=== PATIENT | male | born 1955 | race Caucasian/White ===

== ENCOUNTER 2017-09-16 14:07 | Emergency (ER) | payer OTHER ==
[~2017-09-16] VITALS: Ht 172.7 cm; Wt 65.8 kg
[~2017-09-16 14:07] MED LIST: ACET-787 PO; AMLO5TAB PO; CARI350T PO; IBUP-2213 PO; LORA-476 PO
--- NOTE | 2017-09-16 14:12 | NUR ---
PT DENIES N/V/D; SKIN IS INTACT, PINK/WARM/DRY; AAOX4, PERRL, WC BOUND D/T CHONIC LOWER EXTREM WEAKNESS; LUNGS CLEAR BL, BREATHING UNLABORED; HR EVEN AND REGULAR, BL PERIPHERAL PULSES PRESENT; BS ACTIVE X4, NO TENDERNESS TO PALPATION, NO HEPATOSPLENOMEGALLY PALPATED, RESONANT TO PERCUSSION; PT DENIES ANY FEVER, CP, SOB, OR COUGH AT THIS TIME; PT STATES 8/10 PAIN AT THIS TIME IN LOWER BACK; VSS; PATIENT POSITIONED FOR COMFORT; HOB ELEVATED; BEDRAILS UP X2; BED DOWN.
--- NOTE | 2017-09-16 14:12 | NUR ---
PT BIBA BLS TO BED 8
[2017-09-16 14:15] VITALS: BP 133/77
[2017-09-16] MEDS ORDERED: KETOROLAC 60 MG/2 ML VIAL IM ONE (14:20)
[2017-09-16 15:03] VITALS: BP 128/94
--- NOTE | 2017-09-16 15:08 | NUR ---
Patient discharged with v/s stable. Written and verbal after care instructions given and explained. Patient alert, oriented and verbalized understanding of instructions. MOVES BY WC. All questions addressed prior to discharge. ID band removed. Patient advised to follow up with PMD. Rx of TRAMADOL given. Patient educated on indication of medication including possible reaction and side effects. Opportunity to ask questions provided and answered.
== END 2017-09-16 15:08 | disposition home or self-care (01) ==
LOC: MED 14:07
DX: M54.5 Low back pain (principal); G89.29 Other chronic pain; F10.229 Alcohol dependence with intoxication, unspecified; K21.9 Gastro-esophageal reflux disease without esophagitis; I10 Essential (primary) hypertension; Z95.0 Presence of cardiac pacemaker; Z79.899 Other long term (current) drug therapy
CPT/HCPCS: 96372; 99283; J1885

== ENCOUNTER 2017-09-16 15:54 | Emergency (ER) | payer OTHER ==
[~2017-09-16] VITALS: Ht 175.3 cm; Wt 93.0 kg
[2017-09-16 16:03] VITALS: BP 130/52
--- NOTE | 2017-09-16 16:14 | NUR ---
PT LWBS AT THIS TIME
--- NOTE | 2017-09-16 16:48 | NUR ---
PATIENT WAS TRIAGED TO [facility] AND WANTED TO BE SEEN FOR MORE PAIN MEDS. AFTER SPEAKING TO HIM HE DECIDED TO LEAVE AND WAS PROVIDED WITH A BUS PASS. HE LEFT THE ER BY HIMSELF VIA WHEELCHAIR
== END 2017-09-16 16:14 | disposition left against medical advice (07) ==
LOC: MED 15:54
DX: M54.9 Dorsalgia, unspecified (principal); M25.561 Pain in right knee; M25.562 Pain in left knee; Z53.21 Procedure and treatment not carried out due to patient leaving prior to being seen by health care provider
CPT/HCPCS: 99283

== ENCOUNTER 2017-12-11 17:00 | Inpatient (IN) | payer OTHER ==
[~2017-12-11] VITALS: Ht 170.2 cm; Wt 72.1 kg
--- NOTE | 2017-12-11 17:04 | NUR ---
PATIENT BIBA TO BED2 AT THIS TIME.
[2017-12-11] MEDS ORDERED: NACL 0.9% 1,000 ML IV ONE (17:05)
[2017-12-11 17:06] VITALS: BP 122/85
[2017-12-11] MEDS ORDERED: KETOROLAC 30 MG/ML VIAL IVP ONE (17:20)
--- NOTE | 2017-12-11 17:20 | NUR ---
62YO M BIB A FOR LBP. PT STAT HAVING LBPX2 DAYS DU TO RUNNING OUT OF MEDS, TARDIVE DYSKINESIA NOTED, LS CLEAR , ABB SOFT NON TENDER, -N/V/D. PT STATES HE DOES NOT WALK, ER MD MADE AWARE ER MD MADE AWARE. WILL CONTINUE TO MONITOR
[2017-12-11 17:37] LABS: BASOPHILS % (AUTO) 0.5 % (0.0-2.0); EOSINOPHILS % (AUTO) 0.4 % (0.0-4.0); HEMATOCRIT 42.1 % (36-52); HEMOGLOBIN 13.9 g/dL (12.0-18.0); LYMPHOCYTES # (AUTO) 2.1 K/uL (2.0-11.5); MEAN CORPUSCULAR HEMOGLOBIN 30 pg (27-31); MEAN CORPUSCULAR HGB CONC 33 g/dL (33-37); MEAN CORPUSCULAR VOLUME 91.6 fL (80-94); MONOCYTES # (AUTO) 0.6 K/uL (0.8-1.0); MONOCYTES % (AUTO) 8.7 % (1.7-9.3); NEUTROPHILS # (AUTO) 3.8 K/uL (1.8-7.7); NEUTROPHILS % (AUTO) 58.4 % (42.2-75.2); PLATELET COUNT (AUTO) 235 K/uL (140-450); RED CELL DISTRIBUTION WIDTH 14.6 % (11.6-13.7); WHITE BLOOD COUNT (AUTO) 6.5 K/uL (4.8-10.8)
[2017-12-11 17:58] LABS: ALBUMIN 3.5 g/dL (3.4-5.0); ANION GAP 8.2 (8-16); ASPARTATE AMINOTRANSFERASE 18 U/L (15-37); CARBON DIOXIDE 30.7 mmol/L (21-32); CHLORIDE 98 mmol/L (98-107); CREATININE 0.6 mg/dL (0.7-1.3); GFR ARICAN-AMERICAN 176 mL/min (>90); GLUCOSE 98 mg/dL (74-106); SODIUM SERUM 134 mmol/L (136-145); TOTAL BILIRUBIN 0.5 mg/dL (0.0-1.0); UREA NITROGEN, BLOOD 11 mg/dL (7-18)
[2017-12-11 18:03] LABS: POTASSIUM 2.9 mmol/L (3.5-5.1)
[2017-12-11] MEDS ORDERED: POTASSIUM CHLORIDE 10 MEQ TABER PO ONE (18:05)
[2017-12-11 18:24] LABS: BARBITURATE, URINE NEG. ng/ml (NEG <=200); BENZODIAZEPINE, URINE NEG. ng/mL (NEG <=200); CANNABINOID, URINE NEG. ng/mL (NEG <=50); COCAINE, URINE NEG. ng/mL (NEG <=300); OPIATE, URINE POS. ng/mL (NEG <=2000); PHENCYCLIDINE SCREEN,URINE NEG. ng/mL (NEG <=25)
[2017-12-11] MEDS ORDERED: fentaNYL 0.05 MG/ML VIAL IVP ONE (18:50)
[2017-12-11] MEDS ORDERED: ONDANSETRON 4 MG/2 ML VIAL IVP PRN (18:55)
--- NOTE | 2017-12-11 19:00 | NUR ---
NURSE CALL MD FOR ORDERS WHEN PATIENT ARRIVES ON FLOOR. DR CARIAS.
[2017-12-11] MEDS ORDERED: DOCUSATE 100 MG/10 ML UDC PO PRN (19:05)
--- NOTE | 2017-12-11 19:25 | NUR ---
ADMITTED A 62 Y/O MALE FROM VIA [facility] WITH CHIEF COMPLAINT OF LOW BACK PAIN. TRANSFERRED PATIENT FROM [facility] TO BED WITH 4 PERSON ASSIST. PATIENT AA0X3, UNABLE TO AMBULATE, MRSA NASAL SWAB DONE. SKIN INTACT. EXPLAINED PLAN OF CARE. PERSONAL BELONGING AT PATIENT BEDSIDE. ROUTINE ADMISSION CARE DONE AND CARRY OUT ORDERS. FALL PRECAUTION APPLIED. CALL LIGHTS WITHIN REACH. WILL CONTINUE TO MONITOR.
--- NOTE | 2017-12-11 19:25 | NUR ---
Patient will be admitted to care of DR LEDESMA. Admited toMED-SURG. Will go to [id number]. Belongings list completed. Report to JUAN METCALF.
[2017-12-11] MEDS: LACTATED RINGERS 1,000 ML IV SCH (20:18)
[2017-12-11] MEDS: HYDROcodone/APAP 5/325 MG 1 TAB TAB PO PRN (20:24)
[2017-12-11] MEDS: HYDROmorphone 1 MG/ML AMP IVP PRN (22:45)
[2017-12-12] VITALS: BP 119/84
--- NOTE | 2017-12-12 | NUR ---
V/S TAKEN AND RECORDED. PAIN MEDICATION GIVEN FOR LOW BACK PAIN. NO S/S OF DISTRESS NOTED. WILL CONTINUE TO MONITOR.
[2017-12-12] MEDS: HYDROcodone/APAP 5/325 MG 1 TAB TAB PO PRN ×5 (02:47→20:12)
--- NOTE | 2017-12-12 02:47 | NUR ---
PATIENT ASKING FOR PAIN NORCO GIVEN. NO S/S OF DISTRESS NOTED. CALL LIGHT WITHIN REACH. WILL CONTINUE TO MONITOR.
--- NOTE | 2017-12-12 04:40 | NUR ---
AM CARE DONE. REPOSITIONED PATIENT AND PLACE IN COMFORTABLE POSITION. PATIENT STILL COMPLAINING PAIN. MEDICATION GIVEN. WILL CONTINUE TO MONITOR.
[2017-12-12] MEDS: HYDROmorphone 1 MG/ML AMP IVP PRN ×3 (05:10→13:07)
[2017-12-12 07:19] LABS: BASOPHILS % (AUTO) 0.5 % (0.0-2.0); EOSINOPHILS % (AUTO) 0.5 % (0.0-4.0); HEMATOCRIT 38.2 % (36-52); HEMOGLOBIN 12.8 g/dL (12.0-18.0); LYMPHOCYTES # (AUTO) 1.8 K/uL (2.0-11.5); LYMPHOCYTES % (AUTO) 27.2 % (20.5-51.1); MEAN CORPUSCULAR HEMOGLOBIN 31 pg (27-31); MEAN CORPUSCULAR HGB CONC 33 g/dL (33-37); MONOCYTES # (AUTO) 0.5 K/uL (0.8-1.0); MONOCYTES % (AUTO) 7.8 % (1.7-9.3); NEUTROPHILS # (AUTO) 4.2 K/uL (1.8-7.7); PLATELET COUNT (AUTO) 197 K/uL (140-450); RED BLOOD CELL COUNT(AUTO) 4.16 MIL/uL (4.20-6.10); RED CELL DISTRIBUTION WIDTH 15.3 % (11.6-13.7); WHITE BLOOD COUNT (AUTO) 6.5 K/uL (4.8-10.8)
--- NOTE | 2017-12-12 07:31 | NUR ---
GAVE REPORT TO AM SHIFT RN AT BEDSIDE FOR CONTINUITY OF CARE. PATIENT IN STABLE CONDITION.
[2017-12-12 07:32] LABS: ANION GAP 8.9 (8-16); CARBON DIOXIDE 27.3 mmol/L (21-32); CREATININE 0.5 mg/dL (0.7-1.3); POTASSIUM 3.2 mmol/L (3.5-5.1)
--- NOTE | 2017-12-12 07:32 | NUR ---
RECEIVED BEDSIDE REPORT FROM DIRECTOR OF ORTHOPEDICS NURSE. PATIENT IS AWAKE, ALERT AND ORIENTEDX4. NO SIGNS OF DISTRESS ON RA. FALL RISK PROTOCOL IN PLACE. PATIENT HAS CHRONIC BACK PAIN. PATIENT IS CHAIRFAST. SKIN IS INTACT. IV ON L FA 20G INFUSING LR AT 50. CLEAN, DRY AND INTACT. BED IN LOW POSITION. CALL LIGHT WITHIN REACH. WILL CONTINUE TO MONITOR THE PATIENT.
[2017-12-12 08:00] VITALS: BP 124/78
--- NOTE | 2017-12-12 09:05 | NUR ---
ADMINISTERED MEDS AND PRN PAIN MED. PATIENT TOLERATED WELL. BED IN LOW POSITION. WILL CONTINUE TO MONITOR
--- NOTE | 2017-12-12 10:00 | NUR ---
PATIENT REFUSING IVF.
--- NOTE | 2017-12-12 11:00 | NUR ---
PATIENT SITTING IN BED. NO SIGNS OF DISTRESS. WILL CONTINUE TO MONITOR THE PATIENT. BED IN LOW POSITION. CALL LIGHT WITHIN REACH.
--- NOTE | 2017-12-12 12:00 | NUR ---
ADMINISTERED PRN PAIN MED. PATIENT TOLERATED WELL. WILL CONTINUE TO MONITOR THE PATIENT.
--- NOTE | 2017-12-12 13:58 | NUR ---
ASSISTED PATIENT TO AMBULATE IN THE HALLWAY USING WALKER AND TOLERATED WELL. PUT PATIENT IN THE CHAIR, AND ADVISE TO USE THE CALL LIGHT IF HE WANTS TO GO BACK TO BED. WILL CONTINUE TO MONITOR.
--- NOTE | 2017-12-12 14:00 | NUR ---
PATIENT AMBULATED WITH CHARGE NURSE AROUND THE HALLS
[2017-12-12] MEDS ORDERED: TRAM50TA1 PO (15:32)
[2017-12-12] MEDS ORDERED: POTASSIUM CHLORIDE 10 MEQ TABER PO SCH (15:44)
[2017-12-12 16:00] VITALS: BP 127/80
--- NOTE | 2017-12-12 16:00 | NUR ---
PER DR EISENBERG NO IV PAIN MEDS.
--- NOTE | 2017-12-12 16:01 | NUR ---
ADMINISTERED PRN PAIN MEDS. PATIENT TOLERATED WELL. BED IN LOW POSITION. CALL LIGHT WITHIN REACH
[2017-12-12] MEDS: LACTATED RINGERS 1,000 ML IV SCH (16:15)
--- NOTE | 2017-12-12 16:30 | NUR ---
EDUCATED PATIENT TO STOP WALKING WITHOUT ASSISTANCE ADELITA WHEN TAKING PAIN MEDS. PATIENT STILL CONTINUES TO AMBULATE WITH ASSISTANCE AROUND THE HALLS
--- NOTE | 2017-12-12 18:00 | NUR ---
PATIENT IS FOR DC TODAY, WE TRIED TO CALL FAMILY FOR CHANNEL EXECUTIVE, I SPOKE TO THE SISTER MAREK AND SHE SAID THAT HIS NOT GOING TO HER PLACE UPON DC. WE CALLED THE FRIEND AND PROVIDED THE NUMBER OF HIS PLACE. HE LIVES IN [facility], WE CALLED [facility] AND THEY SAID THAT PATIENT CAN NO LONGER GO BACK THERE SINCE HE LEFT [place]. NURSE GRICELDA WILL PAGED DR. EISENBERG FOR FURTHER ORDER.
--- NOTE | 2017-12-12 18:05 | NUR ---
DR FOWLER ELECTROSTATIC PAINTER SAID THAT PATIENT CAN STAY ANOTHER NIGHT. PLACED AN ORDER FOR NEUROLOGICAL PHYSIOTHERAPIST AND LEFT A MESSAGE TO CM TO WORK ON PLACEMENT TOMORROW.
--- NOTE | 2017-12-12 19:07 | NUR ---
GAVE BEDSIDE REPORT TO DISASTER RECOVERY SPECIALIST NURSE. PATIENT ENDORSED IN STABLE CONDITION
--- NOTE | 2017-12-12 19:10 | NUR ---
RECEIVED PATIENT SITTING ON THE BEDSIDE CHAIR. EXPLAINED TO PATIENT ABOUT SAFETY AND ASK FOR HELP IF HE NEED ASSISTANCE. PATIENT VERBALIZED UNDERSTANDING. CALL LIGHT WITHIN REACH. WILL CONTINUE TO MONITOR.
--- NOTE | 2017-12-12 21:00 | NUR ---
V/S TAKEN AND RECORDED. PATIENT ALWAYS ASKING FOR PAIN MEDICATION EVEN ITS NOT DUE . EXPLAINED TO PATIENT AND EDUCATE ABOUT PAIN REGIMEN. NO S/S OF DISTRESS NOTED. WILL CONTINUE TO MONITOR.
[2017-12-13] VITALS: BP 130/81
--- NOTE | 2017-12-13 | NUR ---
SEEN PATIENT AWAKE ON BED WATCHING TV. PATIENT ASKED FOR PAIN MEDICATION. BED LINEN CHANGED. EXPLAINED/ EDUCATE PATIENT ABOUT PAIN MANAGEMENT. EMPHASIZED TO PATIENT TO CALL FOR ASSISTANCE IF NEEDED. PATIENT VERBALIZED UNDERSTANDING. FALL PRECAUTION APPLIED. CALL LIGHT WITHIN REACH.
[2017-12-13] MEDS: HYDROcodone/APAP 5/325 MG 1 TAB TAB PO PRN ×6 (00:12→19:04)
--- NOTE | 2017-12-13 02:00 | NUR ---
CHECKED PATIENT ASLEEP. NO S/S OF DISTRESS NOTED. CALL LIGHT WITHIN REACH. WILL CONTINUE TO MONITOR.
[2017-12-13] MEDS ORDERED: ACETAMINOPHEN 325 MG TAB PO PRN (06:25)
--- NOTE | 2017-12-13 07:25 | NUR ---
GAVE REPORT TO AM SHIFT RN AT BEDSIDE FOR CONTINUITY OF CARE. PATIENT IN STABLE CONDITION.
--- NOTE | 2017-12-13 07:25 | NUR ---
RECEIVED PT FROM RIGHT OF WAY CLEARER NURSE AT BEDSIDE. PT IS AAOX4. NO S/S OF DISTRESS ON RM AIR. FALL RISK PROTOCOL IN PLACE. PATIENT HAS CHRONIC BACK PAIN. PT IS CHAIRFAST. SKIN IS INTACT. IV ON L FA 20G SL, CLEAN, DRY AND INTACT, PT REFUSED IVF. BED IN LOWEST POSITION. CALL LIGHT WITHIN REACH. WILL CONTINUE TO MONITOR.
[2017-12-13 08:00] VITALS: BP_SYST 117; BP_SYST 136; BP_DIAS 66; BP_DIAS 76
--- NOTE | 2017-12-13 09:00 | NUR ---
PLACED PT ON WHEELCHAIR, WHEELED PT AROUND THE UNIT FOR RELAXATION.
--- NOTE | 2017-12-13 09:02 | NUR ---
PATIENT HAS BEEN SCREENED AND CATEGORIZED MODERATE NUTRITION RISK. PATIENT WILL BE SEEN WITHIN 3-5 DAYS OF ADMISSION. 12/14/17 12/16/[address]
--- NOTE | 2017-12-13 09:15 | NUR ---
PT'S STATED HE WANTS TO LIVE WITH HIS SISTER. CALLED PT'S SISTER DARIELA, LEFT A MESSAGE REQUESTING CALL BACK.
--- NOTE | 2017-12-13 10:25 | NUR ---
PT HAS BEEN YELLING EVERY 10MIN, WANTS TO CALL HER GRANDDAUGHTER. PT CALLED 911, I SPOKE WITH THE POLICE OVER THE PHONE, JAZMIN SAID TO TAKE PHONE AWAY FROM THIS PT BECAUSE HE KEEPS CALLING 911. CALLED PT'S GRANDDAUGHTER [phone] FOR PT BUT NO ONE ANSWERING. Addendum: 12/13/17 at 1438 by Kwabena Guerra RN CALLED [phone]
--- NOTE | 2017-12-13 11:05 | NUR ---
PLACED PT BACK TO BED, K PAD APPLIED TO BACK, 20MIN CYCLING, BED ALARM ON, BED IN LOWEST POSITION.
[2017-12-13] MEDS: LACTATED RINGERS 1,000 ML IV SCH (11:58)
--- NOTE | 2017-12-13 12:58 | NUR ---
PT YENELSYING NURSE, PT WANTS TO USE PHONE TO CALL HER GRANDDAUGHTER. CALLED [phone] FOR PT, BUT NO ONE ANSWERING. Addendum: 12/13/17 at 1438 by Kwabena Guerra RN CALLED [phone]
[2017-12-13] MEDS ORDERED: traMADol 50 MG TAB PO PRN (13:55)
--- NOTE | 2017-12-13 13:59 | NUR ---
County Bailiff Note: I faxed inquiry to both [facility] and [facility]. Per Marielos from [facility] , patient has been accepted for physical therapy, room 6B. Pending physical therapy notes and [facility]'s approval for snf. Per Dianna from [facility] , they can't accept patient due patient taking [employer].
--- NOTE | 2017-12-13 14:38 | NUR ---
HELPED PT CALLED [phone], PT OBTAINED HIS GRAND DAUGHTER'S PHONE, CALLED [phone], PT LEFT A MESSAGE REQUESTING HIS GRAND DAUGHTER TO PICK HIM UP AT [facility].
[2017-12-13] MEDS ORDERED: FAMOTIDINE 20 MG TAB PO SCH ×2 (15:00→21:00)
--- NOTE | 2017-12-13 15:03 | NUR ---
Review faxed to IE along with H&P and PT Evaluation.
[2017-12-13 16:00] VITALS: BP 139/78
--- NOTE | 2017-12-13 16:38 | NUR ---
Supervisor Heading Note: Mae spoke with [facility] case preparer and liner Erendira regarding 's snf order for physical therapy. Erendira provided Mae with authorization for transportation to [facility], [id number], and snf authorization for [facility] [id number]. I provided snf auth to Marielos from [facility]. Per Marielos from [facility] , patient has been accepted for physical therapy, room 6B, accepting physician is , charge nurse Mariia made aware.
--- NOTE | 2017-12-13 17:02 | NUR ---
ARRANGED TRANSPORT WITH [facility] TO GO TO [facility] BOTTLE TESTER TIME IS 7:30 PM . ANGELICA MARTINEZ AWARE OF IT.
--- NOTE | 2017-12-13 19:30 | NUR ---
CALLED [facility]. REPORT GIVEN TO PARKER MARTINEZ.
--- NOTE | 2017-12-13 19:30 | NUR ---
PT DISCHARGED PER MD ORDER. DISCHARGE INSTRUCTION AND RX PROVIDED. MED TEACHING PROVIDED. PT VERBALIZED UNDERSTANDING. IV DC'D, TIP INTACT. PRESSURE APPLIED. PT LEFT IN STABLE CONDITION WITH ALL HIS BELONGINGS. [facility] IS HERE TO TAKE THE PT.
== END 2017-12-13 19:30 | DRG 347 ==
LOC: MED 17:00 → MTU 19:02 → OBSVTOIN 20:09
PROVIDERS: ADMIT Hospitalist; ATTEND Hospitalist
DX: M54.5 Low back pain (principal); E87.1 Hypo-osmolality and hyponatremia; E87.6 Hypokalemia; G89.29 Other chronic pain; I10 Essential (primary) hypertension; K21.9 Gastro-esophageal reflux disease without esophagitis; Z95.0 Presence of cardiac pacemaker; K59.00 Constipation, unspecified
CPT/HCPCS: 96374; 96375; 99285; G0378; 36415; 72131; 80048; 80053; 80305; 85025; 87081; 97110; G0482; J1170; J1644; J1885; J3010; J7120

== ENCOUNTER 2017-12-25 01:32 | Inpatient (IN) | payer OTHER ==
[~2017-12-25] VITALS: Ht 172.7 cm; Wt 71.7 kg
[~2017-12-25 01:32] MED LIST changes: +TRAM50TA1 PO
--- NOTE | 2017-12-25 01:32 | NUR ---
Patient BIBA ACLS, transferred to bed 10. Dr. Alvarez and RN evaluating patient at bedside.
[2017-12-25 01:34] VITALS: BP 134/80
[2017-12-25] MEDS ORDERED: fentaNYL 0.05 MG/ML VIAL IVP ONE ×2 (01:35→03:10)
[2017-12-25] MEDS ORDERED: NACL 0.9% 1,000 ML IV ONE (01:35)
--- NOTE | 2017-12-25 01:35 | NUR ---
PT BIBA AND PRESENTED ER WITH C/O CHEST PAIN X 2 HOURS. PT STATED THAT HE HAS BEEN HAVING DIARRHEA BUT DENIES N/V. PT IS A/O X 4. PT HAS A PACEMAKER AND A DEFIBULATOR. PT STATED THAT HE TAKES NORCO EVERYDAY BECAUSE HE HAS CHRONIC BACK PAIN.SKIN IS PINK/WARM/DRY; LUNGS CLEAR BL; HR EVEN AND REGULAR;PT STATES HIS PAIN IS A 10/10 AT THIS TIME. VSS; PATIENT POSITIONED FOR COMFORT; HOB ELEVATED; BEDRAILS UP X2; BED DOWN. ER MD MADE AWARE OF PT STATUS.
--- NOTE | 2017-12-25 02:30 | NUR ---
COMFORT MEASURES OFFERED, PT TOLERATED WELL.
[2017-12-25 02:32] LABS: ANION GAP 13.8 (8-16); CARBON DIOXIDE 25.9 mmol/L (21-32); CHLORIDE 95 mmol/L (98-107); CREATININE 0.4 mg/dL (0.7-1.3); GFR ARICAN-AMERICAN 280 mL/min (>90); GLUCOSE 90 mg/dL (74-106); POTASSIUM 3.7 mmol/L (3.5-5.1); SODIUM SERUM 131 mmol/L (136-145); UREA NITROGEN, BLOOD 9 mg/dL (7-18)
[2017-12-25 02:37] LABS: PROTHROMBIN TIME 10.4 secs (10.8-13.4)
[2017-12-25 02:44] LABS: ALBUMIN 3.5 g/dL (3.4-5.0); ASPARTATE AMINOTRANSFERASE 11 U/L (15-37); TOTAL BILIRUBIN 0.4 mg/dL (0.0-1.0)
[2017-12-25 02:45] LABS: SALICYLATE < 2.8 mg/dL (2.8-20.0)
[2017-12-25 02:46] LABS: ACETAMINOPHEN 64.2 ug/ml (10-30)
[2017-12-25 02:58] LABS: BASOPHILS % (AUTO) 0.6 % (0.0-2.0); EOSINOPHILS % (AUTO) 0.8 % (0.0-4.0); HEMATOCRIT 39.4 % (36-52); HEMOGLOBIN 13.1 g/dL (12.0-18.0); LYMPHOCYTES # (AUTO) 2.1 K/uL (2.0-11.5); LYMPHOCYTES % (AUTO) 34.4 % (20.5-51.1); MEAN CORPUSCULAR HEMOGLOBIN 31 pg (27-31); MEAN CORPUSCULAR HGB CONC 33 g/dL (33-37); MEAN CORPUSCULAR VOLUME 92.6 fL (80-94); MONOCYTES # (AUTO) 0.6 K/uL (0.8-1.0); MONOCYTES % (AUTO) 9.2 % (1.7-9.3); NEUTROPHILS # (AUTO) 3.3 K/uL (1.8-7.7); PLATELET COUNT (AUTO) 183 K/uL (140-450); RED BLOOD CELL COUNT(AUTO) 4.26 MIL/uL (4.20-6.10); RED CELL DISTRIBUTION WIDTH 14.7 % (11.6-13.7)
[2017-12-25 03:00] LABS: WHITE BLOOD COUNT (AUTO) 6.1 K/uL (4.8-10.8)
[2017-12-25 03:06] LABS: BARBITURATE, URINE NEG. ng/ml (NEG <=200); BENZODIAZEPINE, URINE NEG. ng/mL (NEG <=200); CANNABINOID, URINE NEG. ng/mL (NEG <=50); COCAINE, URINE NEG. ng/mL (NEG <=300); OPIATE, URINE POS. ng/mL (NEG <=2000); PHENCYCLIDINE SCREEN,URINE NEG. ng/mL (NEG <=25)
--- NOTE | 2017-12-25 03:25 | NUR ---
PT IS SLEEPING IN BED, VITALS STABLE.
[2017-12-25 05:00] VITALS: BP 124/82
--- NOTE | 2017-12-25 05:00 | NUR ---
Pt report given to tha mace. Transfer of care at this time.vitals stable.
--- NOTE | 2017-12-25 05:00 | NUR ---
Patient will be admitted to care of dr. lechuga. Admited to telemetry. Will go to room 107A. Belongings list completed. Report to tha mace. vitals stable.
--- NOTE | 2017-12-25 05:00 | NUR ---
RECEIVED REPORT FROM PILOT INSTRUCTORJUAN MCKEON. PT A&O X4, PT ON RA NO SOB. PT SALINE LOCK TO R HAND 20G. PT HAS PACEMAKER ON LEFT SIDE. HE HAS CHRONIC BACK PAIN AND STATES HE HASN'T WALKED IN PAST FEW YEARS. SENSATION ON LEGS IS GOOD. PT REFUSED TO MOVE LEGS DUE TO BACK PAIN. HIS SKIN IS INTACT. FALL PRECAUTION IS IN PLACED. PLAN OF CARE DISCUSSED WITH PT. CALL LIGHT WITHIN REACH.BED ALARM ON AND BED ON LOWEST POSITION. WILL CONTINUE TO MONITOR.
--- NOTE | 2017-12-25 05:40 | NUR ---
PAGED DR MUSTAFA REGARDING PTS PAIN. AWAITING CALL BACK
--- NOTE | 2017-12-25 06:03 | NUR ---
PAGED DR MUSTAFA. REGARDING PTS PAIN. AWAITING CALL BACK
--- NOTE | 2017-12-25 07:23 | NUR ---
ENDORSED PT TO JUAN JOHNSON. PT IN STABLE CONDITION.
--- NOTE | 2017-12-25 07:25 | NUR ---
RECEIVED REPORT FROM RN SUPPLEMENTAL NURSE, PT IS AAOX3, AMBULATES WITH ASSIST, IV IS ON THE RIGHT HAND, PATENT, INTACT, FLUSHING WELL, PT IS COMPLAINING OF 7/10 PAIN LEVEL, NO S/S OF RESPIRATORY DISTRESS NOTED, DISCUSSED PLAN OF CARE WITH PT, PT REINFORCEMENT NEEDED, SAFETY/FALL PRECAUTIONS ARE IN PLACE, CALL LIGHT IS WITHIN REACH, WILL CONTINUE TO MONITOR.
[2017-12-25] MEDS ORDERED: MORPHINE SULFATE 4 MG/ML SYR IVP PRN ×2 (07:50→12:50)
[2017-12-25 08:00] VITALS: BP 142/94
[2017-12-25] MEDS: NACL 0.9% 1,000 ML IV SCH ×3 (08:25→15:32)
--- NOTE | 2017-12-25 11:22 | NUR ---
PATIENT HAS BEEN SCREENED AND CATEGORIZED MODERATE NUTRITION RISK. PATIENT WILL BE SEEN WITHIN 3-5 DAYS OF ADMISSION. 12/28/17 12/30/17 KRISH DUMONT MBA, RD
[2017-12-25 12:00] VITALS: BP 151/82
--- NOTE | 2017-12-25 13:04 | NUR ---
PATIENT RATED PAIN 7/10. MORPHINE GIVEN. WILL CONTINUE TO MONITOR FOR MED EFFECTIVENESS. ALL OTHER NEEDS MET AT THIS TIME.
[2017-12-25] MEDS ORDERED: HYDROcodone/APAP 10/325 MG 1 TAB TAB PO PRN (14:55)
[2017-12-25] MEDS ORDERED: IBUPROFEN 600 MG TAB PO PRN (15:05)
[2017-12-25] MEDS: LORazepam 1 MG TAB PO PRN ×2 (15:24→21:21)
--- NOTE | 2017-12-25 15:31 | NUR ---
PATIENT WAS RESTLESS IN BED. ORDERED ATIVAN FOR ANXIETY. ATIVAN GIVEN AND WILL CONTINUE TO MONITOR FOR MED EFFECTIVENESS.
[2017-12-25 16:00] VITALS: BP 136/88
[2017-12-25] MEDS: CARISOPRODOL 350 MG TAB PO SCH (16:34)
[2017-12-25] MEDS: GABAPENTIN 100 MG CAP PO SCH (16:34)
[2017-12-25] MEDS: traMADol 50 MG TAB PO SCH (17:03)
--- NOTE | 2017-12-25 17:04 | NUR ---
PATIENT RESTLESS IN BED. RATES PAIN AT 7/10. ULTRAM GIVEN FOR PAIN RELIEF. WILL CONTINUE TO MONITOR FOR MED EFFECTIVENESS.
[2017-12-25] MEDS: MORPHINE SULFATE 4 MG/ML SYR IVP PRN (19:01)
--- NOTE | 2017-12-25 19:43 | NUR ---
ENDORSED PATIENT TO VIDEO EDITING INTERN NURSE FOR CONTINUITY OF CARE. PATIENT STABLE AT THIS TIME. ALL NEEDS MET.
--- NOTE | 2017-12-25 19:44 | NUR ---
RECD. RESTING IN BED, AWAKE, A/OX3, RESPIRATION EVEN AND UNLABORED. WATCHING TV. IV OF NS AT 100 ML/HR INFUSING, RIGHT HAND G20. WITH K PAD UNDER THE BACK, STATED HE HAS PAIN IN THE BACK, ABDOMEN AND BILATERAL LOWER EXTREMITIES. PAIN 05/01, WAS MEDICATED BY AM NURSE, WILL CONTINUE TO MONITOR. ADVISED TO CHANGED TO A POSITION WHERE HE FEELS MORE COMFORTABLE. PAIN MEDICATION OPTION DISCUSSED AND ALSO PLAN OF CARE FOR THE SHIFT. VERBALIZED UNDERSTANDING.
[2017-12-25 20:00] VITALS: BP 134/82
--- NOTE | 2017-12-25 20:00 | NUR ---
Patient's Plan of Care was discussed and reviewed with INVENTORY TRANSCRIBER: Checo MAYORGA
--- NOTE | 2017-12-25 21:21 | NUR ---
WITH ANXIETY, MEDICATED WITH ATIVAN 1 MG. PO.
[2017-12-25] MEDS: FAMOTIDINE 20 MG/2 ML VIAL IV SCH (21:30)
--- NOTE | 2017-12-25 21:35 | NUR ---
COMPLAINT OF DIFFICULTY HAVING A BM, 2 PRUNE JUICE GIVEN.
--- NOTE | 2017-12-25 22:20 | NUR ---
NO ANXIETY NOTED, WATCHING TV.
[2017-12-26] VITALS: BP 168/102
--- NOTE | 2017-12-26 00:10 | NUR ---
BP CHECKED - 168/102, HR - 83. WILL PAGE DR. CONNOR, PRECISION AGRICULTURE TECHNICIAN FOR DR. MUSTAFA.
[2017-12-26] MEDS: traMADol 50 MG TAB PO SCH ×3 (00:14→11:29)
[2017-12-26] MEDS: NACL 0.9% 1,000 ML IV SCH ×4 (01:10→21:10)
[2017-12-26] MEDS: MORPHINE SULFATE 4 MG/ML SYR IVP PRN ×4 (01:16→20:40)
[2017-12-26] MEDS ORDERED: amLODIPine 5 MG TAB PO SCH ×2 (01:30→09:00)
[2017-12-26] MEDS ORDERED: cloNIDine 0.1 MG TAB PO PRN (01:30)
[2017-12-26] MEDS ORDERED: DOCUSATE SODIUM 100 MG GELCAP PO PRN (01:35)
--- NOTE | 2017-12-26 01:45 | NUR ---
BP CHECKED - 136/83, HR -79, MEDICATED WITH NORVASC 10 MG. PO ORDERED.
--- NOTE | 2017-12-26 02:45 | NUR ---
BP CHECKED - 138/78, HR - 85. SLEEPING COMFORTABLY IN BED.
[2017-12-26 04:00] VITALS: BP 124/80
[2017-12-26] MEDS: LORazepam 1 MG TAB PO PRN ×2 (04:16→11:29)
--- NOTE | 2017-12-26 04:16 | NUR ---
WITH ANXIETY, MEDICATED WITH ATIVAN 1 MG. P0.
--- NOTE | 2017-12-26 05:16 | NUR ---
NO ANXIETY NOTED, SLEEPING COMFORTABLY.
--- NOTE | 2017-12-26 06:50 | NUR ---
COMPLAINT OF PAIN ATTENDED PROMPTLY, MEDICATED ORDERED. CONDITION REMAIN STABLE. WILL ENDORSE TO AM NURSE FOR CONTINUITY OF CARE.
--- NOTE | 2017-12-26 07:10 | NUR ---
ENDORSED TO Tino WANG FOR CONTINUITY OF CARE.
--- NOTE | 2017-12-26 07:15 | NUR ---
RECEIVED REPORT FROM SURGICAL NURSE PRACTITIONER NURSE. PT IS RESTING IN BED, WATCHING TV, AAOX3, AMBULATES WITH ASSISTIVE DEVICE, PT IS ON ROOM AIR, IV IS ON THE LEFT HAND PATENT, INTACT, FLUSHING WELL, SKIN IS INTACT, NO S/S OF RESPIRATORY DISTRESS OR DISCOMFORT NOTED, DISCUSSED PLAN OF CARE WITH PT, REINFORCEMENT NEEDED, SAFETY/FALL PRECAUTIONS ARE IN PLACE, CALL LIGHT IS WITHIN REACH, WILL CONTINUE TO MONITOR.
[2017-12-26 07:31] LABS: BASOPHILS % (AUTO) 0.8 % (0.0-2.0); EOSINOPHILS % (AUTO) 0.7 % (0.0-4.0); HEMATOCRIT 46.3 % (36-52); HEMOGLOBIN 15.1 g/dL (12.0-18.0); LYMPHOCYTES # (AUTO) 1.4 K/uL (2.0-11.5); LYMPHOCYTES % (AUTO) 25.7 % (20.5-51.1); MEAN CORPUSCULAR HEMOGLOBIN 30 pg (27-31); MEAN CORPUSCULAR HGB CONC 33 g/dL (33-37); MEAN CORPUSCULAR VOLUME 93.3 fL (80-94); MONOCYTES # (AUTO) 0.5 K/uL (0.8-1.0); NEUTROPHILS # (AUTO) 3.6 K/uL (1.8-7.7); NEUTROPHILS % (AUTO) 63.8 % (42.2-75.2); PLATELET COUNT (AUTO) 158 K/uL (140-450); RED BLOOD CELL COUNT(AUTO) 4.96 MIL/uL (4.20-6.10); WHITE BLOOD COUNT (AUTO) 5.6 K/uL (4.8-10.8)
[2017-12-26 08:00] VITALS: BP 136/74
[2017-12-26 08:03] LABS: ALBUMIN 3.7 g/dL (3.4-5.0); ANION GAP 13.3 (8-16); CARBON DIOXIDE 25.1 mmol/L (21-32); CREATININE 0.3 mg/dL (0.7-1.3); POTASSIUM 4.4 mmol/L (3.5-5.1); TOTAL BILIRUBIN 0.6 mg/dL (0.0-1.0)
[2017-12-26] MEDS: amLODIPine 5 MG TAB PO SCH (08:29)
[2017-12-26] MEDS: GABAPENTIN 100 MG CAP PO SCH ×3 (08:29→18:00)
[2017-12-26] MEDS: FAMOTIDINE 20 MG/2 ML VIAL IV SCH ×2 (08:29→21:47)
[2017-12-26] MEDS: CARISOPRODOL 350 MG TAB PO SCH ×3 (08:29→18:00)
[2017-12-26] MEDS: LIDOCAINE 5% 1 EA PATCH TP SCH (08:30)
--- NOTE | 2017-12-26 08:30 | NUR ---
DUE MEDICATION GIVEN, PT TOLERATED WELL, NO S/S OF RESPIRATORY DISTRESS OR DISCOMFORT NOTED, ALL NEEDS ARE MET AT THIS TIME.
--- NOTE | 2017-12-26 08:31 | NUR ---
ADMINISTERED PATIENT'S SCHEDULED MEDS. PATIENT TOLERATED MEDS WELL. ALL NEEDS MET AT THIS TIME. WILL CONTINUE TO MONITOR.
--- NOTE | 2017-12-26 09:18 | NUR ---
MADE A CALL TO [facility] TEL# [phone] AND SPOKE WITH KILEY, STATED THERE IS NO BED HOLD FOR PT, AND THAT HE WAS TOLD THEY ARE NOT TAKING PT BACK TO THEIR FACILITY. KILEY STATED HE WILL TRY TO FIND OUT FOR SURE IF PT HAS A BED OR NOT AND WILL CALL BACK. ELIZABETH MARTINEZ ASSIGNED MADE AWARE.
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
--- NOTE | 2017-12-26 10:30 | NUR ---
PT IS RESTING IN BED, WATCHING TV, CALL LIGHT IS WITHIN REACH.
[2017-12-26 12:00] VITALS: BP 135/80
--- NOTE | 2017-12-26 12:20 | NUR ---
PATIENT IS SITTING ON BEDSIDE CHAIR WATCHING TV. ALL NEEDS MET AT THIS TIME. CALL LIGHT WITHIN REACH.
--- NOTE | 2017-12-26 14:50 | NUR ---
PATIENT COMPLAINED OF PAIN OF 10/10. MORPHINE GIVEN. WILL CONTINUE TO MONITOR FOR MED EFFECTIVENESS. ALL OTHER NEEDS MET AT THIS TIME. CALL LIGHT WITHIN REACH.
[2017-12-26 16:00] VITALS: BP 130/80
--- NOTE | 2017-12-26 16:00 | NUR ---
REASSESSED PT. FOR MORPHINE EFFECTIVENESS. PT. IS SLEEPING COMFORTABLY IN BED AT THIS TIME AND SHOWING NO SIGNS OF PAIN. WILL CONTINUE TO MONITOR.
--- NOTE | 2017-12-26 17:58 | NUR ---
PT IS RESTING IN BED, WATCHING TV, CALL LIGHT IS WITHIN REACH. ALL NEEDS MET AT THIS TIME.
--- NOTE | 2017-12-26 19:11 | NUR ---
ENDORSED PATIENT TO CONSTRUCTION PROJECT MANAGER NURSE FOR CONTINUITY OF CARE. PATIENT STABLE AT THIS TIME. ALL NEEDS MET.
--- NOTE | 2017-12-26 19:12 | NUR ---
RECD. RESTING COMFORTABLY SLEEPING IN BED, BUT EASILY WAKES UP WHEN WAKEN UP, SEEMS DROWSY. A/OX4, RESPIRATION EVEN AND UNLABORED. ON IV OF NS AT 100 ML/HR, RIGHT HAND G20. DENIES CHEST PAIN BUT BACK PAIN 2/, WILL MEDICATE ORDERED. WITH HEATING PAD BEHIND BACK FOR WARMTH AND COMFORT. NO ANXIETY NOTED AT THIS TIME.
[2017-12-26 20:00] VITALS: BP 115/64
--- NOTE | 2017-12-26 20:00 | NUR ---
Patient's Plan of Care was discussed and reviewed with HAND EDGE BANDER: Checo MAYORGA
[2017-12-26] MEDS: traMADol 50 MG TAB PO PRN (23:45)
[2017-12-27] VITALS: BP 108/73
[2017-12-27] MEDS: LORazepam 1 MG TAB PO PRN ×2 (00:55→06:31)
--- NOTE | 2017-12-27 00:55 | NUR ---
WITH ANXIETY, MEDICATED WITH ATIVAN 1 MG. PO.
--- NOTE | 2017-12-27 01:55 | NUR ---
NO ANXIETY NOTED, SLEEPING IN BED.
[2017-12-27] MEDS: MORPHINE SULFATE 4 MG/ML SYR IVP PRN ×2 (03:20→08:22)
[2017-12-27 04:00] VITALS: BP 149/77
[2017-12-27] MEDS: traMADol 50 MG TAB PO PRN ×2 (05:01→14:41)
--- NOTE | 2017-12-27 06:31 | NUR ---
WITH ANXIETY, MEDICATED WITH ATIVAN 1 MG. PO.
--- NOTE | 2017-12-27 07:00 | NUR ---
DUE PO MEDICATIONS FOR PAIN GIVEN ORDERED, STILL COMPLAINING OF PAIN MOST OF THE TIME. REPOSITIONED FOR COMFORT, WARM K-PAD MAINTAINED BEHIND BACK FOR WARMTH AND COMFORT. CONDITION REMAIN STABLE. WILL ENDORSED TO AM NURSE FOR CONTINUITY OF CARE.
--- NOTE | 2017-12-27 07:20 | NUR ---
ENDORSED TO Tino TAPIA FOR CONTINUITY OF CARE.
--- NOTE | 2017-12-27 07:21 | NUR ---
RECEIVED REPORT FROM BOWLING BALL WEIGHER AND PACKER NURSE. PATIENT LYING DOWN IN BED SLEEPING, AROUSABLE BY VOICE. NO DISTRESS NOTED. COMPLAINTS OF LOW BACK PAIN AT THIS TIME, WILL ADMINISTER PAIN MEDICATIONS PER MD ORDERS. AAOX3, CALM, COOPERATIVE, SKIN COLOR APPROPRIATE TO ETHNICITY, WARM TO TOUCH. LUNGS CTA ON ALL LOBES. ABDOMEN SOFT. IV SITE INTACT, PATENT, AND INFUSING IVF PER MD ORDERS. REVIEWED PLAN OF CARE WITH PATIENT. PATIENT VERBALIZED UNDERSTANDING. SAFETY MEASURES IN PLACE, CALL LIGHT WITHIN REACH. WILL CONTINUE TO MONITOR.
[2017-12-27 08:00] VITALS: BP 129/83
[2017-12-27] MEDS: GABAPENTIN 100 MG CAP PO SCH ×3 (08:20→16:28)
[2017-12-27] MEDS: CARISOPRODOL 350 MG TAB PO SCH ×3 (08:21→16:28)
[2017-12-27] MEDS: amLODIPine 5 MG TAB PO SCH (08:21)
[2017-12-27] MEDS: FAMOTIDINE 20 MG/2 ML VIAL IV SCH (08:22)
[2017-12-27] MEDS: NACL 0.9% 1,000 ML IV SCH ×2 (08:22→17:10)
[2017-12-27] MEDS: LIDOCAINE 5% 1 EA PATCH TP SCH (08:22)
--- NOTE | 2017-12-27 08:30 | NUR ---
PATIENT SITTING IN BED WITH COMPLAINTS OF BACK PAIN. MORPHINE AND OTHER SCHEDULED MEDICATIONS DUE GIVEN PER MD ORDERS. SAFETY MEASURES IN PLACE, CALL LIGHT WITHIN REACH. WILL CONTINUE TO MONITOR.
--- NOTE | 2017-12-27 11:00 | NUR ---
PT LYING IN BED. RESPIRATIONS EVEN AND UNLABORED. GIVEN ORDERED DUE MEDICATIONS. SAFETY MEASURES IN PLACE. WILL CONTINUE TO MONITOR.
[2017-12-27 12:00] VITALS: BP 117/84
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
--- NOTE | 2017-12-27 13:40 | NUR ---
PT LYING IN BED IN STABLE CONDITION. RESPIRATIONS EVEN AND UNLABORED. DONALDO BENITEZ ARRIVED TO DISCUSS WITH PT TRANSFER TO FACILITY. SAFETY MEASURES IN PLACE WILL CONTINUE TO MONITOR.
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
--- NOTE | 2017-12-27 14:56 | NUR ---
CM NOTE PER VAISHNAVI OF [facility], PATIENT CAN GO TO RM [address] EIS[address]BERG, NUMBER TO CALL FOR REPORT PH# [phone]. PER [facility]DRA CEDENO [place] PH# [phone], PATIENT WILL BE PICKED UP AT 1830 TIME TODAY GOING TO [facility]. HI MARTINEZ/MOLLY MARTINEZ AND CHARGE NURSE VU GUERRA. Addendum: 12/28/17 at 0837 by Samanta Garcia CM LATE ENTRY FOR 12/27/17 FAXED ORDER TO DC TO SNF FOR PT , FF UP WITH PCP AND PAIN SPECIALIST TO [facility] ATTN: VAISHNAVI. PER VAISHNAVI OF [facility] SHE WILL SCHEDULE PATIENT'S FF UP APPOINTMENT WITH PCP AND PAIN SPECIALIST.
[2017-12-27] MEDS ORDERED: HYDROcodone/APAP 5/325 MG 1 TAB TAB PO PRN (15:00)
[2017-12-27 16:00] VITALS: BP 120/81
--- NOTE | 2017-12-27 16:29 | NUR ---
PATIENT SITTING ON BEDSIDE CHAIR. NO DISTRESS NOTED. SCHEDULED MEDICATIONS DUE GIVEN. NOTIFIED PATIENT OF TRANFER TO [facility] LATER TODAY AROUND 1830. PATIENT VERBALIZED UNDERSTANDING. WILL CONTINUE TO MONITOR.
[2017-12-27] MEDS ORDERED: INFLUENZA VIRUS VACCINE QUAD 0.5 ML SYR IMVAC PRN (17:45)
[2017-12-27] MEDS ORDERED: PNEUMOCOCCAL VACCINE 23 MCG/0.5 ML VIAL IMVAC SCH (17:45)
--- NOTE | 2017-12-27 18:45 | NUR ---
PT WAS GIVEN DISCHARGE INFORMATION PACKET AND INSTRUCTIONS. ALL PT QUESTIONS WERE ANSWERED, PT VERBALIZED UNDERSTANDING AND AGREED WITH PLAN OF CARE AND DISCHARGE INSTRUCTIONS. PT WAS GIVEN FLU AND PNA VACCINE. IV RIGHT HAND/ RIGHT FA WAS DISCONTINUED LUMEN INTACT. SAFETY MEASURES IN PLACE. WILL CONTINUE TO MONITOR
--- NOTE | 2017-12-27 19:20 | NUR ---
[facility] ARRIVED TO [employer] PT TO TAKE TO [facility]. REPORT WAS GIVEN TO TRANSPORT TEAM. ID BRACELETS AND SISAL OPERATOR WERE REMOVED FROM PT. PT TOOK ALL BELONGINGS, DRAWS AND CLOSET WERE EMPTY. PT LEAVING IN STABLE CONDITION.
== END 2017-12-27 19:20 | DRG 426 ==
LOC: MED 01:32 → MTU 04:12
PROVIDERS: ADMIT Hospitalist; ATTEND Hospitalist
PROC: 3E02340 Introduction of Influenza Vaccine into Muscle, Percutaneous Approach (ICD-10-PCS; principal; 2017-12-27)
PROC: 3E0234Z Introduction of Serum, Toxoid and Vaccine into Muscle, Percutaneous Approach (ICD-10-PCS; 2017-12-27)
DX: E87.1 Hypo-osmolality and hyponatremia (principal); F03.90 Unspecified dementia, unspecified severity, without behavioral disturbance, psychotic disturbance, mood disturbance, and anxiety; F11.20 Opioid dependence, uncomplicated; R07.9 Chest pain, unspecified; I10 Essential (primary) hypertension; G89.29 Other chronic pain; T39.1X5A Adverse effect of 4-Aminophenol derivatives, initial encounter; M54.9 Dorsalgia, unspecified; K21.9 Gastro-esophageal reflux disease without esophagitis; Z23 Encounter for immunization; Z79.899 Other long term (current) drug therapy; Z95.0 Presence of cardiac pacemaker; Z87.891 Personal history of nicotine dependence; Z91.19 Patient's noncompliance with other medical treatment and regimen; Y92.89 Other specified places as the place of occurrence of the external cause
CPT/HCPCS: 36415; 71045; 80053; 80305; 84484; 85025; 85610; 85730; 87081; 90658; 90732; 96361; 96374; 96376; 97116; 99285; G0480; G0482; J2270; J3010; J3490; J7030; Q0092

== ENCOUNTER 2018-01-06 15:13 | Emergency (ER) | payer OTHER ==
[~2018-01-06] VITALS: Ht 172.7 cm; Wt 74.8 kg
[~2018-01-06 15:13] MED LIST changes: -ACET-787 PO
[2018-01-06 15:15] VITALS: BP 140/78
[2018-01-06] MEDS ORDERED: KETOROLAC 30 MG/ML VIAL IM ONE (15:55)
[2018-01-06] MEDS ORDERED: DEXAMETHASONE 10 MG/ML VIAL IM ONE (15:55)
[2018-01-06] MEDS ORDERED: MORPHINE SULFATE 4 MG/ML SYR IM ONE ×3 (16:45→20:00)
[2018-01-06] MEDS ORDERED: diphenhydrAMINE 50 MG/ML VIAL IM ONE (16:45)
[2018-01-06] MEDS ORDERED: LORazepam 2 MG/ML VIAL IM ONE (18:45)
[2018-01-06 22:25] VITALS: BP 124/76
== END 2018-01-06 22:25 ==
LOC: MED 15:13
DX: G89.29 Other chronic pain (principal); M54.40 Lumbago with sciatica, unspecified side; K21.9 Gastro-esophageal reflux disease without esophagitis; I10 Essential (primary) hypertension; Z79.899 Other long term (current) drug therapy
CPT/HCPCS: 74176; 96372; 99284; J1100; J1200; J1885; J2060; J2270; 99285

== ENCOUNTER 2018-02-02 14:34 | Inpatient (IN) | payer OTHER ==
[~2018-02-02] VITALS: Ht 172.7 cm; Wt 74.8 kg
[2018-02-02 14:47] VITALS: BP 140/87
[2018-02-02] MEDS ORDERED: ASPIRIN 325 MG TAB PO ONE (16:05)
[2018-02-02] MEDS ORDERED: NITROGLYCERIN 2% 1 GM PKT TP ONE (16:05)
[2018-02-02] MEDS ORDERED: MORPHINE SULFATE 4 MG/ML SYR IVP ONE ×2 (16:05→20:05)
[2018-02-02 16:51] LABS: BASOPHILS % (AUTO) 0.3 % (0.0-2.0); EOSINOPHILS % (AUTO) 0.1 % (0.0-4.0); HEMATOCRIT 43.8 % (36-52); HEMOGLOBIN 14.6 g/dL (12.0-18.0); LYMPHOCYTES # (AUTO) 1.7 K/uL (2.0-11.5); LYMPHOCYTES % (AUTO) 16.9 % (20.5-51.1); MEAN CORPUSCULAR HEMOGLOBIN 30 pg (27-31); MEAN CORPUSCULAR HGB CONC 34 g/dL (33-37); MEAN CORPUSCULAR VOLUME 89.2 fL (80-94); MONOCYTES # (AUTO) 0.4 K/uL (0.8-1.0); NEUTROPHILS # (AUTO) 7.9 K/uL (1.8-7.7); NEUTROPHILS % (AUTO) 78.7 % (42.2-75.2); PLATELET COUNT (AUTO) 206 K/uL (140-450); RED CELL DISTRIBUTION WIDTH 14.6 % (11.6-13.7)
[2018-02-02 17:15] LABS: ANION GAP 16.2 (8-16); CARBON DIOXIDE 22.3 mmol/L (21-32); CREATININE 0.4 mg/dL (0.7-1.3); POTASSIUM 3.5 mmol/L (3.5-5.1)
[2018-02-02 17:19] LABS: CHOL/HDL RATIO 1.8 (1-4.5)
[2018-02-02 17:20] LABS: ALBUMIN 3.8 g/dL (3.4-5.0); TOTAL BILIRUBIN 0.8 mg/dL (0.0-1.0)
[2018-02-02] MEDS ORDERED: LEVOFLOXACIN 500 MG/D5W PREMIX 100 ML IV ONE (17:20)
[2018-02-02] MEDS ORDERED: VANCOMYCIN 1,000 MG in DEXTROSE 5% 250 ML IV ONE (17:20)
[2018-02-02 17:29] LABS: CREATINE KINASE MB 6.1 ng/mL (0-3.6)
[2018-02-02] MEDS ORDERED: VANCOMYCIN 1,000 MG VIAL ONE (18:37)
[2018-02-02] MEDS ORDERED: NACL 0.9% IV ONE (18:55)
[2018-02-02] MEDS ORDERED: NACL 0.9% 2,200 ML IV ONE (18:55)
[2018-02-02] MEDS ORDERED: ACETAMINOPHEN 325 MG TAB PO PRN (20:15)
[2018-02-02] MEDS ORDERED: ONDANSETRON 4 MG/2 ML VIAL IVP PRN (20:15)
[2018-02-02 21:00] VITALS: BP 134/91
[2018-02-02] MEDS: PIPERACILLIN/TAZOBACTAM 2.25 GM in DEXTROSE 5% 50 ML IV SCH (21:31)
[2018-02-02] MEDS ORDERED: PIPERACILLIN/TAZOBACTAM 2.25 GM VIAL IV ONE (21:32)
[2018-02-02] MEDS ORDERED: FOLIC ACID 5 MG/ML SYR ONE (21:43)
[2018-02-02] MEDS ORDERED: MULTIVITAMIN-12 10 ML VIAL IV ONE ×2 (21:43→21:49)
[2018-02-02] MEDS ORDERED: THIAMINE 200 MG/2 ML VIAL ONE (21:43)
[2018-02-02] MEDS: MORPHINE SULFATE 4 MG/ML SYR IVP PRN (21:59)
[2018-02-02] MEDS: MULTIVITAMIN-12 10 ML, THIAMINE 100 MG, FOLIC ACID 1 MG, MAGNESIUM SULFATE 50% 2,000 MG... IV SCH ×5 (22:00)
[2018-02-02] MEDS ORDERED: MAG SULF 2000 MG/WATER PREMIX 50 ML IV ONE (22:05)
[2018-02-02] MEDS: LORazepam 2 MG/ML VIAL IVP PRN (22:38)
[2018-02-03] VITALS: BP 127/92
[2018-02-03] MEDS: ALBUTEROL 0.083% 2.5 MG/3 ML NEBU INH SCH ×4 (00:59→18:34)
[2018-02-03 01:46] LABS: CREATINE KINASE MB 3.4 ng/mL (0-3.6)
[2018-02-03 04:00] VITALS: BP 132/83
[2018-02-03] MEDS ORDERED: PIPERACILLIN/TAZOBACTAM 2.25 GM VIAL IV ONE (05:01)
[2018-02-03] MEDS: MORPHINE SULFATE 4 MG/ML SYR IVP PRN ×5 (05:12→21:32)
[2018-02-03] MEDS: PIPERACILLIN/TAZOBACTAM 2.25 GM in DEXTROSE 5% 50 ML IV SCH (05:39)
[2018-02-03 07:20] LABS: BASOPHILS % (AUTO) 0.3 % (0.0-2.0); EOSINOPHILS % (AUTO) 0.6 % (0.0-4.0); HEMATOCRIT 36.6 % (36-52); HEMOGLOBIN 12.4 g/dL (12.0-18.0); LYMPHOCYTES # (AUTO) 1.3 K/uL (2.0-11.5); LYMPHOCYTES % (AUTO) 17.8 % (20.5-51.1); MEAN CORPUSCULAR HEMOGLOBIN 30 pg (27-31); MEAN CORPUSCULAR HGB CONC 34 g/dL (33-37); MEAN CORPUSCULAR VOLUME 88.5 fL (80-94); MONOCYTES # (AUTO) 0.8 K/uL (0.8-1.0); MONOCYTES % (AUTO) 11.2 % (1.7-9.3); NEUTROPHILS # (AUTO) 4.9 K/uL (1.8-7.7); NEUTROPHILS % (AUTO) 70.1 % (42.2-75.2); PLATELET COUNT (AUTO) 178 K/uL (140-450); RED BLOOD CELL COUNT(AUTO) 4.14 MIL/uL (4.20-6.10); RED CELL DISTRIBUTION WIDTH 14.4 % (11.6-13.7); WHITE BLOOD COUNT (AUTO) 7.1 K/uL (4.8-10.8)
[2018-02-03 07:37] LABS: ANION GAP 12.1 (8-16); CARBON DIOXIDE 25.9 mmol/L (21-32); CREATININE 0.3 mg/dL (0.7-1.3); TOTAL BILIRUBIN 0.9 mg/dL (0.0-1.0)
[2018-02-03 08:00] VITALS: BP 140/74
[2018-02-03] MEDS: ASPIRIN 81 MG TAB.CHEW PO SCH (09:22)
[2018-02-03] MEDS: ENOXAPARIN 40 MG/0.4 ML SYR SUBQ SCH (09:26)
[2018-02-03] MEDS ORDERED: POTASSIUM CHLORIDE 10 MEQ TABER PO SCH (09:30)
[2018-02-03 12:00] VITALS: BP 136/89
[2018-02-03] MEDS: PIPER/TAZO 2.25GM/D5W PREMIX 50 ML IV SCH ×4 (12:59→20:30)
[2018-02-03] MEDS ORDERED: LEVO750T2 PO (13:05)
[2018-02-03 16:00] VITALS: BP 149/91
[2018-02-03 20:00] VITALS: BP 126/83
[2018-02-03] MEDS: METOPROLOL 25 MG TAB PO SCH (20:29)
[2018-02-03] MEDS: MULTIVITAMIN-12 10 ML, THIAMINE 100 MG, FOLIC ACID 1 MG, MAGNESIUM SULFATE 50% 2,000 MG... IV SCH ×5 (20:34)
[2018-02-03] MEDS: LORazepam 2 MG/ML VIAL IVP PRN (22:57)
[2018-02-04] VITALS: BP 113/71
[2018-02-04] MEDS: ALBUTEROL 0.083% 2.5 MG/3 ML NEBU INH SCH ×3 (00:09→13:02)
[2018-02-04] MEDS: MORPHINE SULFATE 4 MG/ML SYR IVP PRN ×5 (02:06→18:04)
[2018-02-04 04:00] VITALS: BP 112/83
[2018-02-04] MEDS: PIPER/TAZO 2.25GM/D5W PREMIX 50 ML IV SCH ×2 (04:02→12:59)
[2018-02-04 08:00] VITALS: BP 126/84
[2018-02-04] MEDS: METOPROLOL 25 MG TAB PO SCH (08:28)
[2018-02-04] MEDS: ASPIRIN 81 MG TAB.CHEW PO SCH (08:28)
[2018-02-04] MEDS: ENOXAPARIN 40 MG/0.4 ML SYR SUBQ SCH (08:32)
[2018-02-04] MEDS ORDERED: DOCUSATE SODIUM 100 MG GELCAP PO PRN (11:35)
[2018-02-04 12:00] VITALS: BP 118/77
[2018-02-04 16:00] VITALS: BP 123/78
[2018-02-05] MEDS ORDERED: THIAMINE 100 MG TAB PO SCH (09:00)
[2018-02-05] MEDS ORDERED: MULTIVITAMIN 1 TAB PO SCH (09:00)
[2018-02-05] MEDS ORDERED: FOLIC ACID 1 MG TAB PO SCH (09:00)
== END 2018-02-04 19:30 | DRG 720 ==
LOC: MED 14:34 → MTU 20:14
PROVIDERS: ADMIT Hospitalist; ATTEND Hospitalist
DX: A41.9 Sepsis, unspecified organism (principal); J18.1 Lobar pneumonia, unspecified organism; E87.1 Hypo-osmolality and hyponatremia; E11.9 Type 2 diabetes mellitus without complications; K21.9 Gastro-esophageal reflux disease without esophagitis; F10.20 Alcohol dependence, uncomplicated; Y90.9 Presence of alcohol in blood, level not specified; I10 Essential (primary) hypertension; Z95.0 Presence of cardiac pacemaker; Z79.899 Other long term (current) drug therapy
CPT/HCPCS: 36415; 36600; 71045; 80053; 82550; 82553; 82803; 83605; 83880; 84484; 85025; 85379; 87040; 87081; 93005; 94640; 96361; 96365; 96375; 96376; 97116; 99285; A9153; J1650; J1956; J2060; J2270; J2543; J3370; J3411; J3475; J3490; J7030; J7060; J7613; Q0092

== ENCOUNTER 2018-02-10 03:51 | Emergency (ER) | payer OTHER ==
[~2018-02-10] VITALS: Ht 172.7 cm; Wt 81.6 kg
[~2018-02-10 03:51] MED LIST changes: +LEVO750T2 PO
[2018-02-10 04:00] VITALS: BP 145/87
[2018-02-10] MEDS ORDERED: NACL 0.9% 500 ML IV ONE (04:00)
[2018-02-10] MEDS ORDERED: KETOROLAC 30 MG/ML VIAL IVP ONE (04:00)
[2018-02-10] MEDS ORDERED: FOLI1TAB90 PO (04:11)
[2018-02-10] MEDS ORDERED: OMEP20TC12 PO (04:11)
[2018-02-10] MEDS ORDERED: METO25TE2 PO (04:11)
--- NOTE | 2018-02-10 04:30 | NUR ---
PT BIBA FOR C/P AND BODY PAIN THAT WOKE PT OUT OF SLEEP TONIGHT. PT MOANING AND C/O PAIN. PT HAS HOME PAIN MEDS BUT STATES HE DID NOT TAKE THEM TODAY BECAUSE HE COULDNT FIND HIS GLASSES. PT IS LAYING IN BED, PT HAS WHEELCHAIR FROM HOME W/ HIM.
[2018-02-10 05:38] VITALS: BP 130/82
--- NOTE | 2018-02-10 05:39 | NUR ---
Patient discharged with v/s stable. Written and verbal after care instructions given and explained. Patient alert, oriented and verbalized understanding of instructions. Wheel Chair Assisted TO LOBBY TO WAIT FOR BUS. All questions addressed prior to discharge. ID band removed. Patient advised to follow up with PMD. Rx of MOTRIN given. Patient educated on indication of medication including possible reaction and side effects. Opportunity to ask questions provided and answered. BUS PASS GIVEN , PT STATES HE WILL BE GOING BACK TO [facility].
== END 2018-02-10 05:39 | disposition home or self-care (01) ==
LOC: MED 03:51
DX: G89.4 Chronic pain syndrome (principal); M54.9 Dorsalgia, unspecified; R07.9 Chest pain, unspecified; K21.9 Gastro-esophageal reflux disease without esophagitis; I10 Essential (primary) hypertension; Z79.899 Other long term (current) drug therapy
CPT/HCPCS: 93005; 96374; 99283; J1885; J7030

== ENCOUNTER 2018-02-19 22:47 | Emergency (ER) | payer OTHER ==
[~2018-02-19] VITALS: Ht 172.7 cm; Wt 74.8 kg
[~2018-02-19 22:47] MED LIST changes: -AMLO5TAB PO; +FOLI1TAB90 PO; -IBUP-2213 PO; -LEVO750T2 PO; +METO25TE2 PO; +OMEP20TC12 PO
--- NOTE | 2018-02-19 22:47 | NUR ---
PT LAURYN BLS. TAKEN TO BED 6
[2018-02-19 22:50] VITALS: BP 118/71
--- NOTE | 2018-02-19 22:50 | NUR ---
PT BIBA FOUND AT [facility] P[facility], PER [facility] PT WAS IN [facility] AND IT WAS CLOSING WHEN TOLD TO LEAVE PT STARTED C/O CHEST PAIN. PT C/O C/P NON PROVOKED, STERNAL, NO SOB. PT IS LAYING IN BED, C/O PAIN, PLACED ON MONITOR, ER MD AWARE OF PT STATUS.
--- NOTE | 2018-02-19 23:50 | NUR ---
Dr. Mccall evaluating patient at bedside.
[2018-02-19] MEDS ORDERED: NACL 0.9% 1,000 ML IV ONE (23:55)
--- NOTE | 2018-02-20 00:26 | NUR ---
X-Ray at bedside.
--- NOTE | 2018-02-20 00:50 | NUR ---
STRAIGHT CATHETERIZATION PERFORMED 100CC YELLOW URINE DRAINED, URINE SAMPLE SENT TO LAB.
[2018-02-20 00:51] LABS: BASOPHILS % (AUTO) 0.2 % (0.0-2.0); EOSINOPHILS % (AUTO) 0.3 % (0.0-4.0); HEMATOCRIT 44.2 % (36-52); HEMOGLOBIN 14.5 g/dL (12.0-18.0); LYMPHOCYTES # (AUTO) 1.1 K/uL (2.0-11.5); LYMPHOCYTES % (AUTO) 11.7 % (20.5-51.1); MEAN CORPUSCULAR HEMOGLOBIN 30 pg (27-31); MEAN CORPUSCULAR HGB CONC 33 g/dL (33-37); MEAN CORPUSCULAR VOLUME 92.4 fL (80-94); MONOCYTES # (AUTO) 0.8 K/uL (0.8-1.0); MONOCYTES % (AUTO) 8.5 % (1.7-9.3); NEUTROPHILS # (AUTO) 7.2 K/uL (1.8-7.7); NEUTROPHILS % (AUTO) 79.3 % (42.2-75.2); PLATELET COUNT (AUTO) 235 K/uL (140-450); RED BLOOD CELL COUNT(AUTO) 4.78 MIL/uL (4.20-6.10); RED CELL DISTRIBUTION WIDTH 14.9 % (11.6-13.7)
[2018-02-20] MEDS ORDERED: LORazepam 2 MG/ML VIAL IVP ONE (01:10)
[2018-02-20 01:11] LABS: ALBUMIN 3.3 g/dL (3.4-5.0); ANION GAP 15.5 (8-16); CARBON DIOXIDE 25.4 mmol/L (21-32); CREATININE 0.4 mg/dL (0.7-1.3); TOTAL BILIRUBIN 0.3 mg/dL (0.0-1.0)
[2018-02-20 01:17] LABS: POTASSIUM 2.9 mmol/L (3.5-5.1)
[2018-02-20 01:27] LABS: BARBITURATE, URINE NEGATIVE ng/ml (NEG <=200); BENZODIAZEPINE, URINE POSITIVE ng/mL (NEG <=200); CANNABINOID, URINE NEGATIVE ng/mL (NEG <=50); COCAINE, URINE NEGATIVE ng/mL (NEG <=300); OPIATE, URINE NEGATIVE ng/mL (NEG <=2000); PHENCYCLIDINE SCREEN,URINE NEGATIVE ng/mL (NEG <=25)
--- NOTE | 2018-02-20 01:30 | NUR ---
PT IV INFILTRATED, IV D/C, ATTEMPTED UNSUCCESSFULLY TO START NEW IV, CHARGE, RN MADE AWARE.
[2018-02-20 01:38] LABS: CREATINE KINASE MB 2.1 ng/mL (0-3.6)
[2018-02-20] MEDS ORDERED: POTASSIUM CHLORIDE 10 MEQ TABER PO ONE (01:55)
[2018-02-20 03:45] VITALS: BP 125/67
--- NOTE | 2018-02-20 03:47 | NUR ---
Patient discharged with v/s stable. Written and verbal after care instructions given and explained. Patient verbalized understanding. Wheel Chair Assisted TO LOBBY. All questions addressed prior to discharge. Advised to follow up with PMD. PT REFUSED TO SIGN D/C PAPER WORK OR HOMELESS PACKET , PT DID TAKE ALL INFORMATION PROVIDED, AND BUS PASS.
== END 2018-02-20 03:47 | disposition home or self-care (01) ==
LOC: MED 22:47
DX: R07.89 Other chest pain (principal); E11.9 Type 2 diabetes mellitus without complications; K21.9 Gastro-esophageal reflux disease without esophagitis; I10 Essential (primary) hypertension; Z95.0 Presence of cardiac pacemaker; Z79.899 Other long term (current) drug therapy
CPT/HCPCS: 36415; 71045; 80053; 80305; 82550; 82553; 83690; 84484; 85025; 93005; 96374; 99284; C1758; G0482; J2060; J7030; Q0092

== ENCOUNTER 2018-02-20 16:06 | Emergency (ER) | payer OTHER ==
[~2018-02-20] VITALS: Ht 170.2 cm; Wt 70.8 kg
[2018-02-20 16:14] VITALS: BP 136/82
[2018-02-20] MEDS ORDERED: NACL 0.9% 2,000 ML IV SCH (16:28)
[2018-02-20] MEDS ORDERED: diphenhydrAMINE 50 MG/ML VIAL IVP ONE (16:30)
[2018-02-20] MEDS ORDERED: FAMOTIDINE 20 MG/2 ML VIAL IVP ONE (16:30)
[2018-02-20 18:21] LABS: BASOPHILS % (AUTO) 0.2 % (0.0-2.0); EOSINOPHILS % (AUTO) 0.1 % (0.0-4.0); HEMATOCRIT 47.9 % (36-52); HEMOGLOBIN 15.7 g/dL (12.0-18.0); LYMPHOCYTES # (AUTO) 2.4 K/uL (2.0-11.5); LYMPHOCYTES % (AUTO) 21.3 % (20.5-51.1); MEAN CORPUSCULAR HEMOGLOBIN 31 pg (27-31); MEAN CORPUSCULAR HGB CONC 33 g/dL (33-37); MEAN CORPUSCULAR VOLUME 93.2 fL (80-94); MONOCYTES % (AUTO) 9.1 % (1.7-9.3); NEUTROPHILS # (AUTO) 7.8 K/uL (1.8-7.7); NEUTROPHILS % (AUTO) 69.3 % (42.2-75.2); PLATELET COUNT (AUTO) 262 K/uL (140-450); RED BLOOD CELL COUNT(AUTO) 5.14 MIL/uL (4.20-6.10); RED CELL DISTRIBUTION WIDTH 15.3 % (11.6-13.7); WHITE BLOOD COUNT (AUTO) 11.2 K/uL (4.8-10.8)
[2018-02-20 18:41] LABS: BARBITURATE, URINE NEG. ng/ml (NEG <=200); BENZODIAZEPINE, URINE POS. ng/mL (NEG <=200); CANNABINOID, URINE NEG. ng/mL (NEG <=50); COCAINE, URINE NEG. ng/mL (NEG <=300); OPIATE, URINE NEG. ng/mL (NEG <=2000); PHENCYCLIDINE SCREEN,URINE NEG. ng/mL (NEG <=25)
[2018-02-20 18:42] LABS: ALBUMIN 3.5 g/dL (3.4-5.0); ANION GAP 16.3 (8-16); ASPARTATE AMINOTRANSFERASE 28 U/L (15-37); CARBON DIOXIDE 23.6 mmol/L (21-32); CHLORIDE 94 mmol/L (98-107); GFR ARICAN-AMERICAN 389 mL/min (>90); GLUCOSE 98 mg/dL (74-106); MAGNESIUM 1.8 mg/dL (1.8-2.4); POTASSIUM 3.9 mmol/L (3.5-5.1); SODIUM SERUM 130 mmol/L (136-145); TOTAL BILIRUBIN 0.3 mg/dL (0.0-1.0); UREA NITROGEN, BLOOD 3 mg/dL (7-18)
[2018-02-20 18:43] LABS: SALICYLATE < 2.8 mg/dL (2.8-20.0)
[2018-02-20 18:44] LABS: ACETAMINOPHEN < 0.5 ug/ml (10-30)
[2018-02-20 18:45] LABS: CREATININE 0.3 mg/dL (0.7-1.3)
[2018-02-20 18:47] LABS: ACETONE, SERUM NEGATIVE (NEGATIVE)
[2018-02-20 19:43] VITALS: BP 136/82
[2018-02-20 20:22] LABS: APPEARANCE,URINE CLEAR (CLEAR); BILIRUBIN,URINE NEGATIVE (NEGATIVE); BLOOD, URINE TRACE-I (NEGATIVE); COLOR,URINE YELLOW (YELLOW); LEUKOCYTE ESTERASE ,URINE NEGATIVE (NEGATIVE); NITRITE, URINE NEGATIVE (NEGATIVE); UGLUCOSE NEGATIVE (NEGATIVE)
[2018-02-20 20:36] LABS: RBC,URINE 0-5 (RARE) /HPF (0-5); WBC,URINE NONE SEEN /HPF (0-5)
== END 2018-02-20 19:43 | disposition home or self-care (01) ==
LOC: MED 16:06
DX: F10.129 Alcohol abuse with intoxication, unspecified (principal); Y90.8 Blood alcohol level of 240 mg/100 ml or more; E11.9 Type 2 diabetes mellitus without complications; K21.9 Gastro-esophageal reflux disease without esophagitis; I10 Essential (primary) hypertension; Z95.0 Presence of cardiac pacemaker; Z79.899 Other long term (current) drug therapy
CPT/HCPCS: 36415; 70450; 71045; 80053; 80305; 81001; 82009; 82550; 82553; 83735; 84484; 85025; 87804; 93005; 96374; 96375; 99284; G0480; G0482; J1200; J3490; Q0092; C1758

== ENCOUNTER 2018-02-21 15:56 | Emergency (ER) | payer OTHER ==
[~2018-02-21] VITALS: Ht 170.2 cm; Wt 68.0 kg
--- NOTE | 2018-02-21 15:57 | NUR ---
PT LAURYN CAPELLAN, CURRENTLY AWAITING BED
[2018-02-21 16:02] VITALS: BP 115/71
--- NOTE | 2018-02-21 16:11 | NUR ---
pt placed into his wheelchair from [facility]---taken to er lob immediately seen pt navigate his way out of er lobby and down parking ramp without difficulty
--- NOTE | 2018-02-21 16:14 | NUR ---
notified , pt no answer
== END 2018-02-21 16:14 | disposition left against medical advice (07) ==
LOC: MED 15:56
DX: R07.9 Chest pain, unspecified (principal); F10.129 Alcohol abuse with intoxication, unspecified; Z53.21 Procedure and treatment not carried out due to patient leaving prior to being seen by health care provider